=== PATIENT | female | born 1965 | race Hispanic/Latino ===

== ENCOUNTER 2022-05-24 23:52 | Emergency (ER) | payer MEDICAID, OTHER ==
[~2022-05-24] VITALS: Ht 157.5 cm; Wt 69.9 kg
[2022-05-25 00:23] LABS: APPEARANCE,URINE CLEAR (CLEAR); BILIRUBIN,URINE NEGATIVE (NEGATIVE); COLOR,URINE COLORLESS (YELLOW); GLUCOSE, URINE (UA) NEGATIVE (NEGATIVE); KETONES,URINE NEGATIVE (NEGATIVE); LEUKOCYTE ESTERASE ,URINE 250 Leu/uL (NEGATIVE); NITRATE,URINE NEGATIVE (NEGATIVE); OCCULT BLOOD,URINE NEGATIVE (NEGATIVE); PH,URINE 6.5 (5.0-8.0); PROTEIN,URINE NEGATIVE (NEGATIVE); UROBILINOGEN,URINE 0.2 mg/dL (0.2-1.0)
[2022-05-25 00:27] LABS: MUCUS,URINE RARE LPF (None Seen); RBC,URINE 0-1 /HPF (0-1); SQUAMOUS EPITHELIAL CELL,UR RARE /HPF (0-2)
[2022-05-25 00:32] LABS: BASOPHILS % (AUTO) 0.3 % (0.0-5.0); EOSINOPHILS % (AUTO) 1.2 % (0.0-8.0); HEMATOCRIT 41.6 % (36-48); LYMPHOCYTES % (AUTO) 17.4 % (21.0-51.0); MEAN CORPUSCULAR HEMOGLOBIN 29.2 pg (27.0-33.0); MEAN CORPUSCULAR HGB CONC 32.2 g/dL (32.0-36.0); MEAN CORPUSCULAR VOLUME 90.6 fL (79-99); MONOCYTES % (AUTO) 6.9 % (3.0-13.0); NEUTROPHILS % (AUTO) 73.7 % (40.0-77.0); PLATELET COUNT (AUTO) 262 K/uL (130-400); RED BLOOD CELL COUNT(AUTO) 4.59 MIL/uL (4.00-5.50); RED CELL DISTRIBUTION WIDTH 14.6 % (11.0-15.5); WHITE BLOOD COUNT (AUTO) 17.3 K/uL (4.8-10.8)
[2022-05-25 00:44] LABS: CREATININE 0.5 mg/dL (0.5-1.5); POTASSIUM 3.1 mmol/L (3.5-5.1)
[2022-05-25 00:49] LABS: ALBUMIN 3.6 g/dL (3.5-5.0); TOTAL PROTEIN, SERUM 7.5 g/dL (6.0-8.3)
[2022-05-25] MEDS ORDERED: POTASSIUM CHLORIDE 10MEQ SR TAB PO ONE (01:00)
[2022-05-25] MEDS ORDERED: IPRATROPIUM/ALBUTEROL SULFATE 3 ML SOLUTION IH ONE ×2 (01:00→03:00)
[2022-05-25] MEDS ORDERED: CEFTRIAXONE 1G VIAL IVP ONE (01:00)
[2022-05-25] MEDS ORDERED: AZITHROMYCIN 250 MG TABLET PO ONE (01:00)
[2022-05-25] MEDS ORDERED: ALBUTEROL 0.083% 2.5 MG/3 ML INH IH ONE ×2 (01:12→03:00)
[2022-05-25] MEDS ORDERED: IPRATROPIUM 0.5 MG/2.5 ML INH IH ONE ×2 (01:12→03:00)
[2022-05-25] MEDS ORDERED: ONDANSETRON 4MG INJ ONE (01:51)
[2022-05-25 01:56] VITALS: BP 169/73
[2022-05-25] MEDS ORDERED: AZIT500T2 PO (03:18)
[2022-05-25] MEDS ORDERED: ALBU90AE2 IH (03:18)
[2022-05-25] MEDS ORDERED: PRED20TA3 PO (03:18)
== END 2022-05-25 03:30 | disposition home or self-care (01) ==
LOC: EDH 23:52
DX: J44.1 Chronic obstructive pulmonary disease with (acute) exacerbation (principal); I10 Essential (primary) hypertension; Z20.822 Contact with and (suspected) exposure to COVID-19
CPT/HCPCS: 99285; 96374; 87635; 84484; 80053; 85025; 87040 ×2; 87088; 87880; 87804 ×2; 83605; 81001; 36415; 71045; 93005; 94640 ×2; C9803; J0696; J2405

== ENCOUNTER 2025-03-07 08:48 | Emergency (ER) | payer BC ==
[~2025-03-07] VITALS: Ht 154.9 cm; Wt 72.6 kg
[~2025-03-07 08:48] MED LIST: ALBU90AE3 IH; AZIT500T2 PO; GABA-529 PO; PRED20TA3 PO
[2025-03-07] MEDS: ORPHENADRINE 60MG/2ML IM ONE (09:21)
[2025-03-07] MEDS ORDERED: METH-662 PO (09:59)
[2025-03-07] MEDS ORDERED: LIDO1ADH71 TP (09:59)
[2025-03-07] MEDS ORDERED: NAPR-1194 PO (09:59)
--- NOTE | 2025-03-07 10:00 | ERN ---
General Chief Complaint: Generalized Body Aches Stated Complaint: CHRONIC ARTHRITIS ACHES Time Seen by MD: 08:50 Source: patient History of Present Illness Initial Comments Patient is a 59-year-old female coming in complaining of back pain. Per patient she has a history of arthritis and frequently presents with the symptoms. She states that this pain began a couple of weeks ago but has not seem to resolved. Allergies: Coded Allergies: No Known Allergies (Unverified Allergy, Unknown, 05/24/22) Home Meds Active Scripts Gabapentin (Gabapentin) 100 Mg Capsule, 100 MG PO TID, #15 CAP 0 Refills Prov:VIOLET PEGUERO MD 09/20/23 Prednisone (Prednisone) 20 Mg Tablet, 1 TAB PO AD for 6 Days, #14 TAB 0 Refills TAKE 3 TAB BY MOUTH daily X3 DAYS, THEN TAKE 2 TAB BY MOUTH daily X2 DAYS, THEN TAKE 1 TAB BY MOUTH ONCE A DAY X1 DAY. Prov:ANGEL ABDI MD 05/25/22 Albuterol Sulfate (Proair Digihaler) 90 Mcg Aer.pw.bas, 2 PUFF IH QID, #1 UNIT Prov:ANGEL ABDI MD 05/25/22 Azithromycin (Zithromax Tri-Brandon) 500 Mg Tablet, 500 MG PO DAILY, #3 TAB Prov:ANGEL ABDI MD 05/25/22 Past Medical History Past Medical History: Arthritis, COPD, Hypertension Past Surgical History: Cholecystectomy Family History Family History: DM, HTN Social History Social History: Negative, Lives with family ROS Dictation CONSTITUTIONAL: No chills, no fever, no weakness, no diaphoresis, no malaise. HEAD/FACE: No signs of trauma. EENT: No eye pain, no blurred vision, no tearing, no double vision, no ear pain, no ear discharge, no nose pain, no nasal congestion, no throat pain, no throat swelling, no mouth pain. RESPIRATORY: No cough, no orthopnea, no SOB, no stridor, no wheezing. CARDIOVASCULAR: No chest pain, no edema, no palpitations, no syncope. GASTROINTESTINAL/ABDOMINAL: No abdominal pain, no constipation, no diarrhea, no nausea, no vomiting. GENITOURINARY: No abnormal discharge, no dysuria, no frequent urination, no hematuria. No complaints of pain in the genitals. MUSCULOSKELETAL: back pain, no gout, no joint pain, no joint swelling, no muscle pain, no muscle stiffness, no neck pain. INTEGUMENTARY: No change in color, no change in hair/nails, no dryness, no lesion, no lumps, no rash. NEUROLOGICAL/PSYCH: No anxiety, not depressed, no emotional problem, no headache, no numbness, no pre-existing deficit, no history of seizures, no tremors, no weakness. HEMATOLOGIC/LYMPHATIC: Not anemic, no history of blood clots, no apparent bleeding, no bruising, glands not swollen. All Systems Negative, Except as Noted. Physical Exam Physical Exam Dictation VITAL SIGNS: Reviewed. GENERAL APPEARANCE: Alert, oriented x3, no acute distress, obese. HEAD AND FACE: Non-traumatic. EYES: PERRL, pink conjunctivas, eyelid no trauma, anterior chamber clear. EARS: Pinnas intact and no signs of trauma or erythema. Ear canals clear and no discharge. TMs no erythema. NOSE: No discharge, no bleeding. OROPHARYNX: Mouth normal, teeth no caries, tongue pink. Pharynx clear, no erythema. Tonsils no exudates, no abscesses noted. Mucous membrane moist. NECK: Supple, non-tender, no thyromegaly, no masses, no JVD, no bruits. BREAST: Deferred. CHEST: No tenderness, no crepitus, no paradoxical movement, no retractions. LUNGS: Clear, well-ventilated, symmetric, no rales, no wheezing, no rhonchi, no stridor, good breath sounds bilaterally. HEART: Regular rate, regular rhythm, no murmur, no gallops. VASCULAR: No peripheral edema. ABDOMEN: Soft, positive bowel sounds, nondistended, no guarding, nontender, no rebound, no masses no hepatomegaly, no splenomegaly, no Brito's sign, no hernias. RECTAL: Deferred. GENITAL: Deferred. NEUROLOGICAL: Normal speech, gross motor function intact, gross sensory function intact. MUSCULOSKELETAL: Neck nontender, full range of motion, back nontender, full range of motion. EXTREMITIES: Nontender, full range of motion. Bilateral trapezius muscle te nderness on palpation SKIN: Color pink, dry, no turgor, no rash, no lacerations, no abrasions, no contusions. LYMPHATICS: Deferred. Results Laboratory and Microbiology Labs Reviewed?: Yes MDM MDM: Differential diagnosis: Chronic arthritis, acute on chronic pain, Rationale: Tests considered and ordered secondary to shared decision making include: Previous outside records reviewed: Old ER visits. Risk of complication and/or morbidity or mortality of patient management: None Medications-Per medication reconciliation Need for hospitalization: Patient does not meet criteria for hospitalization. Need for emergency major/minor surgery: No Patient is a 59-year-old female coming in complaining of body aches. Per patient he has a extensive history of arthritis. Received some antispasmodics in his anti-inflammatories states he feels better we will be discharged in stable condition. ED Course Orders Procedure Category Date Status Time Orphenadrine Citrate PHA 03/07/25 Complete (Norflex) 09:30 Ketorolac PHA 03/07/25 Complete Tromethamine 30mg/Ml 09:30 Current Medications Medications (Trade) Dose Ordered Sig/Linda Route PRN Reason Start Time Stop Time Status Last Admin Dose Admin Ketorolac Tromethamine (toRADol) 30 mg ONCE ONCE IM 03/07/25 09:30 03/07/25 09:31 DC 03/07/25 09:21 Orphenadrine Citrate (Norflex) 60 mg ONCE ONCE IM 03/07/25 09:30 03/07/25 09:31 DC 03/07/25 09:21 Vital Signs Date Time Temp Pulse Resp B/P (MAP) Pulse Ox O2 Delivery O2 Flow Rate FiO2 03/07/25 09:11 98.2 77 18 157/78 99 Room Air* 0 21 03/07/25 08:53 98.4 74 18 166/86 99 Room Air 0 DX & DISP Disposition: Discharge Departure Impression: Primary Impression: Spasm, muscle, back Condition: Stable Scripts Lidocaine (Lidocaine Pain Relief) 4 % Adh..patch 1 PATCH TP DAILY for 5 Days, #5 PATCH 0 Refills Prov: SOFIYA LUNDY MD 03/07/25 Methocarbamol (Robaxin) 750 Mg Tab 1 TAB PO BID for 5 Days, #10 TAB 0 Refills Prov: SOFIYA LUNDY MD 03/07/25 Naproxen (Naproxen) 500 Mg Tablet 1 TAB PO BID for pain for 7 Days, #14 TAB 0 Refills Prov: SOFIYA LUNDY MD 03/07/25 Additional Instructions: FOLLOW-UP WITH PRIMARY CARE PROVIDER IN 1 TO 2 DAYS. TAKE MEDICATIONS DIRECTED HERE IN THE EMERGENCY ROOM. OKAY TO CONTINUE HOME MEDICATIONS UNLESS OTHERWISE DISCUSSED DURING YOUR VISIT IN THE EMERGENCY ROOM TODAY. RETURN TO YOUR NEAREST EMERGENCY ROOM IF SYMPTOMS WORSEN OR IF THERE IS NO IMPROVEMENT. CALL 911 IF YOU NEED IMMEDIATE ASSISTANCE. TAKE TYLENOL [id number] NEEDED AND IF NO CONTRAINDICATIONS ARE PRESENT. INCREASE ORAL HYDRATION. A WOUND CULTURE OR URINE CULTURE WAS ORDERED HERE IN THE EMERGENCY ROOM DEPARTMENT PLEASE FOLLOW-UP WITH PRIMARY CARE PROVIDER AND ADVISE THEM TO GET REPORTS FROM OUR FACILITY. IF YOU HAD ANY GOLDIE WRAP/SPLINTS THAT WERE APPLIED HERE, PLEASE DO NOT REMOVE THEM UNTIL YOU SEE YOUR PRIMARY CARE OR SPECIALTY. Referrals: Referrals: ROBERT CHAVES MD (PCP) Time of Disposition: 09:55 SOFIYA LUNDY MD Mar 07, 2025 10:00
[2025-03-07 10:06] VITALS: BP 173/52; PULSE 76; RESP 18; TEMP 99.7; O2SAT 99
--- NOTE | 2025-03-07 10:08 | NUR ---
PT STABLE NO DISTRESS, VITALS WNL NO C/O PAIN PT STATES SHE FEELS BETTER NOW PAIN IS TOLERABLE, NO IV AT THIS TIME. PT GIVEN INSTRUCTIONS AND RX FOR PHARMACY WILL START TODAY. PT WALKED TO ED LOBBY, PT DRIVEN HOME BY SPOUSE.
== END 2025-03-07 10:14 | disposition home or self-care (01) ==
LOC: EDH 08:48
DX: M62.830 Muscle spasm of back (principal); J44.9 Chronic obstructive pulmonary disease, unspecified; I10 Essential (primary) hypertension; M19.90 Unspecified osteoarthritis, unspecified site; Z79.899 Other long term (current) drug therapy; Z90.49 Acquired absence of other specified parts of digestive tract
CPT/HCPCS: 99284; 96372 ×2; J1885; J2360